=== PATIENT | female | born 1980 | race Caucasian/White ===

== ENCOUNTER 2018-07-14 18:53 | Inpatient (IN) | payer OTHER ==
[~2018-07-14] VITALS: Ht 172.7 cm; Wt 58.0 kg
[2018-07-14 19:29] VITALS: PULSE 63
[2018-07-14 19:38] VITALS: BP 113/68; PULSE 64; RESP 17
[2018-07-14 19:59] VITALS: Ht 172.7 cm; Wt 58.0 kg
[2018-07-14 20:00] VITALS: PULSE 63
[2018-07-14] MEDS ORDERED: DOCUSATE SODIUM 100 MG CAP PO PRN (20:00)
[2018-07-14] MEDS ORDERED: LORAZEPAM 2 MG INJ IV PRN (20:00)
[2018-07-14] MEDS ORDERED: ACETAMINOPHEN 325 MG TAB PO PRN (20:00)
[2018-07-14] MEDS ORDERED: ONDANSETRON 4 MG INJ IV PRN (20:00)
[2018-07-14] MEDS ORDERED: BISACODYL (EC) 5 MG TAB PO PRN (20:00)
[2018-07-14] MEDS ORDERED: NACL 0.9% 3 ML SYG IV SCH (20:00)
[2018-07-14] MEDS: CHLORDIAZEPOXIDE 25 MG CAP PO SCH (20:20)
[2018-07-14 22:07] VITALS: PULSE 44
[2018-07-14] MEDS: NICOTINE (14 MG/24 HR) PATCH TRANSDERM SCH (22:47)
[2018-07-14 23:33] VITALS: BP 121/63; PULSE 59; RESP 18
[2018-07-15] VITALS (7 sets, daily range): BP systolic 100–131; BP diastolic 59–76; PULSE 55–82; RESP 16–17
[2018-07-15] MEDS ORDERED: GABA300C16 PO (00:31)
--- NOTE | 2018-07-15 02:22 | HP ---
Date/Time of Note Date/Time of Note DATE: 07/15/18 TIME: 02:22 Assessment/Plan VTE Prophylaxis Risk score (from Ns)>0 risk: 0 SCD applied (from Ns): Yes Pharmacological prophylaxis: NA/contraindicated Pharm contraindication: low risk/ambulating Lines/Catheters IV Catheter Type (from Nrs): Saline Lock Urinary Cath still in place: No Assessment/Plan Hospital Course This is a 38-year-old female being admitted to the telemetry floor for: #1 alcohol intoxication: Librium taper, PRN Ativan, banana bag, MVI/folic acid/thiamine. Check ethanol and urine drug screen level. #2 history of alcohol abuse: As per #1, social work consult #3 lactic acidosis: Elective the transfer facility initially was 3.7 with a repeat being 3.3. Will repeat one in the a.m. Likely secondary to alcohol intoxication. Patient is afebrile no signs of infection at the current time. We will continue to monitor. #4 mood disorder: Patient has history of anxiety/depression. On Wellbutrin as an outpatient, will need to confirm home dose and restart as indicated. She does not have a psychiatrist anymore, at the current time will consult psych in- house. #5 normocytic anemia: No signs of bleeding. Follow-up as outpatient. #6 DVT GI prophylaxis: SCDs, no GI prophylaxis indicated Further treatment strategy will be implemented as per the clinical course. Result Diagram: 07/14/18202207/14/182022 Results 24hrs Laboratory Tests Test 07/14/18 20:23 White Blood Count 6.9 Red Blood Count 3.63 L Hemoglobin 11.6 L Hematocrit 34.8 L Mean Corpuscular Volume 95.9 Mean Corpuscular Hemoglobin 32.0 Mean Corpuscular Hemoglobin Concent 33.3 Red Cell Distribution Width 14.4 Platelet Count 190 Mean Platelet Volume 10.7 H Immature Granulocytes % 0.300 Neutrophils % 49.9 Lymphocytes % 33.5 Monocytes % 11.8 H Eosinophils % 3.8 Basophils % 0.7 Nucleated Red Blood Cells % 0.0 Immature Granulocytes # 0.020 Neutrophils # 3.5 Lymphocytes # 2.3 Monocytes # 0.8 Eosinophils # 0.3 Basophils # 0.1 Nucleated Red Blood Cells # 0.0 Sodium Level 136 Potassium Level 3.8 Chloride Level 104 Carbon Dioxide Level 26 Anion Gap 6 Blood Urea Nitrogen 8 Creatinine 0.54 Est Glomerular Filtrat Rate mL/min > 60 Glucose Level 107 Calcium Level 9.2 Total Bilirubin 0.6 Direct Bilirubin 0.00 Indirect Bilirubin 0.6 Aspartate Amino Transf (AST/SGOT) 28 Alanine Aminotransferase (ALT/SGPT) 30 Alkaline Phosphatase 57 Total Protein 6.4 Albumin 3.9 Globulin 2.50 Albumin/Globulin Ratio 1.56 HPI/ROS Admit Date/Time Admit Date/Time Jul 14, 2018 at 19:04 Hx of Present Illness Chief complaint: Not feeling well recent discharge from rehab This is a 38-year-old female with a past medical history of alcohol abuse and alcohol intoxication who presented originally to [facility] after not feeling well. She presented there with her boyfriend. She was subsequently transferred to [facility] secondary to insurance purposes. Patient has a history of alcohol abuse and had been sober for a period of time and then relapsed. She went into rehab and was there for approximately 19 days and was discharged approximately a week ago. She states that she went to a hotel and started drinking again where she had a friend who also was drinking. She states that she does have a good support system and is planning to stay with her mom when she is discharged and then check into a sober living facility. She does have a history of anxiety/depression and she is on Wellbutrin for that. She would like to see a psychiatrist while she is here as she needs a new one as well. Pertinent laboratory findings from the transfer facility please see chart for full details: CBC: WBC 5.7/hemoglobin 11.8/hematocrit 33.9/platelet count 214 Sodium 139 potassium 3.5 creatinine 0.5 Lactic acid 3.7 with repeat 3.3 Allergies: NKDA Medications: See JUL ROS Const: As per HPI Eyes : No pain discharge or redness or change in visual acuity ENT: No pain, sore throat, congestion, congestion, dysphagia or discharge Respiratory: No shortness of breath, cough, sputum, wheezing, or pleuritic pain Cardiovascular: No chest pain, palpitation, PND, or edema GI : no change in appetite, abdominal pain, nausea, vomiting, diarrhea, cons tipation, or change in the color his stool Genitourinary: No dysuria, hematuria, flank pain , discharge or CVA tenderness Musculoskeletal: No joint pain, back pain, neck pain, restricted range of motion in neck or joints Skin: No rash, bruising or hives Neuro: No headache, dizziness, syncope, seizure, focal weakness Endocrine: No polyuria, polydipsia, temperature intolerance Psych: No hallucination, depression, anxiety or suicidal ideation PMH/Family/Social Past Medical History Alcohol abuse, anxiety/depression Medications Current Medications IV Flush (NS 3 ml) 3 ml PER PROTOCOL IV ; Start 07/14/18 at 20:00 Ondansetron HCl (Zofran Inj) 4 mg Q6H PRN IV NAUSEA/VOMITING; Start 07/14/18 at 20:00 Acetaminophen (Tylenol Tab) 650 mg Q6H PRN PO .PAIN 1-3 OR TEMP; Start 07/14/18 at 20:00 Docusate Sodium (Colace) 100 mg Q12H PRN PO .CONSTIPATION; Start 07/14/18 at 20:00 Bisacodyl (Dulcolax) 5 mg DAILY PRN PO .CONSTIPATION; Start 07/14/18 at 20:00 Lorazepam (Ativan) 1 mg Q4H PRN IV CONTROL WITHDRAWAL SYMPTOMS; Start 07/14/18 at 20:00 Chlordiazepoxide (Librium) 50 mg TID PO Last administered on 07/14/18at 20:20; Admin Dose 50 MG; Start 07/14/18 at 21:00; Stop 07/15/18 at 20:59 Chlordiazepoxide (Librium) 25 mg QID PO ; Start 07/15/18 at 21:00; Stop 07/16/18 at 20:59 Chlordiazepoxide (Librium) 25 mg TID PO ; Start 07/16/18 at 21:00; Stop 07/17/18 at 20:59 Nicotine (Nicoderm 14 Mg/ 24hr) 1 patch DAILY TRANSDERM Last administered on 07/14/18at 22:47; Admin Dose 1 PATCH; Start 07/14/18 at 21:00 Coded Allergies: No Known Allergy (Unverified , 07/14/18) Past Surgical History Left knee surgery, left ankle surgery, left wrist surgery Family History Significant Family History: no pertinent family hx Social History Alcohol Use: heavy Smoking Status: Never smoker Drug Use: none Exam/Review of Systems Vital Signs Vitals Vital Signs Date Temp Pulse Resp B/P (MAP) Pulse Ox O2 O2 Flow FiO2 Time Delivery Rate 07/14/18 98.1 59 18 121/63 100 23:33 (82) Exam Exam General: Patient is currently lying in bed in no acute distress, she does not appear to be anxious HEENT: Atraumatic, normocephalic. The pupils are equal, round and reactive. Extraocular motor are intact Neck: Supple with full range of motion. No rigidity or meningismus Chest: Nontender Lungs: Clear to auscultation bilaterally no crackles rales or wheezing Heart: Normal S1-S2, Regular rhythm and rate. No murmur, S3, or S4 Abdomen: Soft , nontender, nondistended , bowel sounds are present. No guarding no rebound tenderness , No masses or organomegaly. No costovertebral temporal angle mass Extremities: Normal to inspection, no edema no cyanosis Neurologic: Normal mental status, speech normal, cranial nerves II through XII are intact, motor and sensory are intact, no focal weakness Psych: Appears normal at the current time, is not anxious or tremulous, is not hallucinating SHERRY CHERY Jul 15, 2018 02:22
[2018-07-15] MEDS ORDERED: SOD CHLORIDE 0.9% 500 ML IV ONE (05:00)
[2018-07-15] MEDS: CHLORDIAZEPOXIDE 25 MG CAP PO SCH ×2 (08:11→12:37)
[2018-07-15] MEDS: NICOTINE (14 MG/24 HR) PATCH TRANSDERM SCH (08:12)
[2018-07-15] MEDS ORDERED: MULTIVITAMINS 10 ML, THIAMINE 100 MG, FOLIC ACID 1 MG in SOD CHLORIDE 0.9% 1,000 ML IVPB SCH (09:00)
[2018-07-15] MEDS ORDERED: Nicotine (14 Mg/24 Hr) TRANSDERM (14:36)
[2018-07-15] MEDS ORDERED: MULTI PO (14:36)
[2018-07-15] MEDS ORDERED: FOLI-49 PO (14:36)
[2018-07-15] MEDS ORDERED: THIA100T56 PO (14:36)
--- NOTE | 2018-07-15 17:23 | DS ---
Date/Time of Note Date/Time of Note DATE: 07/15/18 TIME: 17:16 Discharge Summary Admission/Discharge Info Admit Date/Time Jul 14, 2018 at 19:04 Discharge Date/Time Jul 15, 2018 at 15:45 Discharge Diagnosis 38 yo F admitted and managed for #1 alcohol intoxication: -mentation improved, back to baseline #2 history of alcohol abuse: -She is to check back into sober living tomorrow -need for cessation re-inforced, resources provided #3 lactic acidosis: -resolved -Likely secondary to alcohol intoxication. #4 mood disorder: Patient has history of anxiety/depression. -home meds to be resumed at discharge -o/p psych f/u #5 normocytic anemia: stable / chronic . Patient Condition: Stable Hospital Course This is a 38-year-old female with a past medical history of alcohol abuse, alcohol intoxication and anxiety/depression who presented originally to [facility] after not feeling well. She presented there with her boyfriend. She was subsequently transferred to [facility] secondary to insurance purposes. Patient has a history of alcohol abuse and had been sober for a period of time and then relapsed. She went into rehab and was there for approximately 19 days and was discharged approximately a week ago. She states that she went to a hotel and started drinking again where she had a friend who also was drinking. She states that she does have a good support system and is planning to stay with her mom when she is discharged and then check into a sober living facility tomorrow. She was treated for alcohol withdrawal and her indices and symptoms improved. At this time, she has been fully evaluated by myself and is stable for discharge. Patient is also requesting to be discharged. Mother is at the bedside and will take her home. She will call her insurance to assign her a new psychiatrist. She has enough refills on her antianxiety meds to last her a few months, but she desires librium to help her through the next few days . Comorbidities were also aggressively managed as per Med records. Patient at this time has been evaluated and examined in detail and is assessed to be in stable condition and ready for discharge. . Home Meds Active Scripts [Nicotine (14 Mg/24 Hr)] 1 PATCH PATCH No Conflict Check, 1 PATCH TRANSDERM DAILY, #30 PATCH 1 Refill Prov:PANFILO,BOLATITO M. 07/15/18 Thiamine* (Vitamin B-1*) 100 Mg Tablet, 100 MG PO DAILY, #30 TAB 1 Refill Prov:TERESA WHITTAKER 07/15/18 Multivitamins* (Theragran*) 1 Tab Tab, 1 TAB PO DAILY, #30 TAB 1 Refill Prov:TERESA WHITTAKER 07/15/18 Folic Acid* (Folic Acid*) 1 Mg Tablet, 1 MG PO DAILY, #30 TAB 1 Refill Prov:TERESA WHITTAKER 07/15/18 Reported Medications Gabapentin* (Gabapentin*) 300 Mg Capsule, 600 MG PO TID, CAP 07/15/18 Follow-up Plan See hospital course . Primary Care Provider [facility] Time spent on discharge: > 30 minutes Pending Labs Laboratory Tests Test 07/14/18 20:23 07/15/18 05:20 07/15/18 05:23 07/15/18 06:30 White Blood 6.9 6.6 Count 10^3/ul (4.8-10 10^3/ul (4.8-1 .8) 0.8) Red Blood 3.63 3.63 Count 10^6/ul (4.20-5 10^6/ul (4.20- .40) 5.40) Hemoglobin 11.6 11.8 g/dl (12.0-16.0 g/dl (12.0-16. ) 0) Hematocrit 34.8 34.7 % (37.0-47.0) % (37.0-47.0) Mean 95.9 95.6 Corpuscular fl (82.0-101.0) fl (82.0-101.0 Volume ) Mean 32.0 32.5 Corpuscular pg (29.0-33.0) pg (29.0-33.0) Hemoglobin Mean 33.3 34.0 Corpuscular g/dl (32.0-37.0 g/dl (32.0-37. Hemoglobin Conc ) 0) ent Red Cell 14.4 14.1 Distribution % (11.5-14.5) % (11.5-14.5) Width Platelet Count 190 188 10^3/UL (140-41 10^3/UL (140-4 5) 15) Mean Platelet 10.7 10.5 Volume fl (7.4-10.4) fl (7.4-10.4) Immature 0.300 0.200 Granulocytes % % (0.001-0.429) % (0.001-0.429 ) Neutrophils % 49.9 45.2 % (39.0-77.0) % (39.0-77.0) Lymphocytes % 33.5 40.2 % (15.0-51.0) % (15.0-51.0) Monocytes % 11.8 8.5 % (0.0-11.0) % (0.0-11.0) Eosinophils % 3.8 % (0.0-7.0) 5.1 % (0.0-7.0) Basophils % 0.7 % (0.0-2.0) 0.8 % (0.0-2.0) Nucleated Red 0.0 0.0 Blood Cells % /100WBC (0.0-0. /100WBC (0.0-0 0) .0) Immature 0.020 0.010 Granulocytes # 10^3/ul (0.0-0. 10^3/ul (0.0-0 031) .031) Neutrophils # 3.5 3.0 10^3/ul (1.6-7. 10^3/ul (1.6-7 5) .5) Lymphocytes # 2.3 2.7 10^3/ul (0.8-2. 10^3/ul (0.8-2 9) .9) Monocytes # 0.8 0.6 10^3/ul (0.3-0. 10^3/ul (0.3-0 9) .9) Eosinophils # 0.3 0.3 10^3/ul (0.0-0. 10^3/ul (0.0-0 5) .5) Basophils # 0.1 0.1 10^3/ul (0.0-0. 10^3/ul (0.0-0 1) .1) Nucleated Red 0.0 0.0 Blood Cells # 10^3/ul (0.0-0. 10^3/ul (0.0-0 0) .0) Sodium Level 136 138 mmol/L (135-144 mmol/L (135-14 ) 4) Potassium 3.8 3.5 Level mmol/L (3.5-5.1 mmol/L (3.5-5. ) 1) Chloride Level 104 105 mmol/L (97-110) mmol/L (97-110 ) Carbon Dioxide 26 24 Level mmol/L (21-31) mmol/L (21-31) Anion Gap 6 (5-13) 9 (5-13) Blood Urea 8 mg/dl (7-20) 7 mg/dl (7-20) Nitrogen Creatinine 0.54 0.40 mg/dl (0.44-1.0 mg/dl (0.44-1. 0) 00) Est Glomerular > 60 > 60 Filtrat mL/min (>60) mL/min (>60) Rate mL/min Glucose Level 107 104 mg/dl (70-220) mg/dl (70-220) Calcium Level 9.2 8.9 mg/dl (8.4-10.2 mg/dl (8.4-10. ) 2) Total 0.6 0.6 Bilirubin mg/dl (0.2-1.3) mg/dl (0.2-1.3 ) Direct 0.00 0.00 Bilirubin mg/dl (0.00-0.2 mg/dl (0.00-0. 0) 20) Indirect 0.6 0.6 Bilirubin mg/dl (0-1.1) mg/dl (0-1.1) Aspartate Amino 28 IU/L (15-46) 25 Transf (AST/SGO IU/L (15-46) T) Alanine 30 IU/L (13-69) 31 Aminotransferas IU/L (13-69) e (ALT/SGPT) Alkaline 57 54 Phosphatase IU/L (42-121) IU/L (42-121) Total Protein 6.4 6.3 g/dl (6.1-8.1) g/dl (6.1-8.1) Albumin 3.9 3.6 g/dl (3.3-4.9) g/dl (3.3-4.9) Globulin 2.50 2.70 g/dl (1.3-3.2) g/dl (1.3-3.2) Albumin/Globuli 1.56 1.33 n Ratio Hemoglobin A1c 4.7 % (0-5.9) Lactic Acid 1.1 Level mmol/L (0.5-2. 0) Ethyl Alcohol < 10.0 Level mg/dl (0-0) Magnesium 1.8 Level mg/dl (1.7-2.5 ) Triglycerides 77 Level mg/dl (0-149) Cholesterol 187 Level mg/dl (100-200 ) LDL 67 mg/dl Cholesterol, Calculated HDL 105 Cholesterol mg/dl (34-82) Cholesterol/HDL 1.7 RATIO Ratio Thyroid 3.080 Stimulating MIU/L (0.465-4 Hormone (TSH) .680) Urine Color YELLOW (YELLOW ) Urine Clarity CLEAR (CLEAR) Urine pH 7.0 (5.0-9.0) Urine Specific 1.012 (1.003-1 [place] .030) Urine Ketones NEGATIVE mg/dL (NEGATIV E) Urine Nitrite NEGATIVE mg/dL (NEGATIV E) Urine NEGATIVE Bilirubin mg/dL (NEGATIV E) Urine NEGATIVE Urobilinogen mg/dL (NEGATIV E) Urine Leukocyte NEGATIVE Braulio/u Esterase l Urine NEGATIVE Hemoglobin mg/dL (NEGATIV E) Urine Glucose NEGATIVE mg/dL (NEGATIV E) Urine Total NEGATIVE Protein mg/dl (NEGATIV E) Urine Opiates Negative (NEGA Screen TIVE) Urine Negative (NEGA Barbiturates TIVE) Urine Negative (NEGA Amphetamines TIVE) Screen Urine Positive (NEGA Benzodiazepines TIVE) Screen Urine Cocaine Negative (NEGA Screen TIVE) Urine Negative (NEGA Cannabinoids TIVE) TERESA WHITTAKER Jul 15, 2018 17:23
[2018-07-15] MEDS ORDERED: CHLORDIAZEPOXIDE 25 MG CAP PO SCH (21:00)
[2018-07-16] MEDS ORDERED: FOLIC ACID 1 MG TAB PO SCH (09:00)
[2018-07-16] MEDS ORDERED: THIAMINE 100 MG TAB PO SCH (09:00)
[2018-07-16] MEDS ORDERED: MULTIVITAMINS THERAPEUTIC TAB PO SCH (09:00)
[2018-07-16] MEDS ORDERED: CHLORDIAZEPOXIDE 25 MG CAP PO SCH (21:00)
== END 2018-07-15 15:45 | disposition home or self-care (01) | DRG 897 ==
LOC: TEL 19:04
PROVIDERS: ADMIT Internal Medicine; ATTEND Family Medicine
DX: F10.120 Alcohol abuse with intoxication, uncomplicated (principal); E87.2 Acidosis; Y90.0 Blood alcohol level of less than 20 mg/100 ml; F32.9 Major depressive disorder, single episode, unspecified; F41.9 Anxiety disorder, unspecified; D64.9 Anemia, unspecified
CPT/HCPCS: 80053; 80061; 80307; 81003; 83036; 83605; 83735; 84443; 85025; J2060; J3411; J7030; J7040